=== PATIENT | female | born 1980 | race Caucasian/White ===

== ENCOUNTER 2018-03-21 03:39 | Emergency (ER) | payer BC ==
--- NOTE | 2018-03-21 04:35 | RADIOLOGY REPORT (SQ) ---
EXAM DESCRIPTION: XR SHOULDER 2 OR MORE VIEWS COMPLETED DATE/TME: 03/21/2018 00:00 CLINICAL HISTORY: 37 years, Female, possible dislocation COMPARISON: None. FINDINGS: 3 views of the left shoulder. Left reverse shoulder arthroplasty appears to be in appropriate radiographic position. No definite fracture identified. No acute abnormalities of the left hemithorax. IMPRESSION: No acute fracture or dislocation. Left reverse shoulder arthroplasty. 2010 [employer]- All Rights Reserved
[2018-03-21] MEDS ORDERED: ONDANSETRON 4 MG TAB.RAPDIS PO ONE (04:59)
--- NOTE | 2018-03-21 05:18 | ER Document Report ---
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 Patient states that away did not occur around a little bit. Patient states that the pain does not radiate. She still eating and drinking without difficulties. Patient states that she does not want to move the arm due to pain. She has not noticed any other redness, swelling, abscess, or streaks. Denies any headache, fever, neck pain, head injury, URI, sore throat, chest pain , palpitations, syncope, cough, shortness of breath, wheeze, dyspnea, abdominal pain, nausea/vomiting/diarrhea, urinary retention, dysuria, hematuria, loss of control of bowel or bladder, numbness/tingling, muscle paralysis/weakness, or rash. - ROS Systems Reviewed and Negative: Yes All other systems reviewed and negative Past Medical History - Social History Smoking Status: Current Some Day Smoker Chew tobacco use (# tins/day): No Frequency of alcohol use: None Drug Abuse: None Family History: Reviewed & Not Pertinent Patient has suicidal ideation: No Patient has homicidal ideation: No Renal/ Medical History: Denies: Hx Peritoneal Dialysis Vertical Provider Document - CONSTITUTIONAL Agree With Documented VS: Yes Notes: PHYSICAL EXAMINATION: GENERAL: Well-appearing, well-nourished and in no acute distress. NECK: Normal range of motion, supple without lymphadenopathy. Non-tender. Spurling negative. No rigidity/meningismus. LUNGS: Breath sounds clear to auscultation bilaterally and equal. No wheezes rales or rhonchi. HEART: Regular rate and rhythm without murmurs, rubs, gallops. Musculoskeletal: Lt shoulder: LROM to passive. LROM to active due to pain. Strength 5+/5. + surgical scar noted. No swelling, erythema, or warmth. No skin break down. No ecchymosis. N/V intact distal. Extremities: No cyanosis, clubbing, or edema b/l. Peripheral pulses 2+. Capillary refill less than 3 seconds. NEUROLOGICAL: Normal speech, normal gait. Normal sensory, motor exams PSYCH: Normal mood, normal affect. SKIN: Warm, Dry, normal turgor, no rashes or lesions noted. - INFECTION CONTROL TRAVEL OUTSIDE OF THE [place] IN LAST 30 DAYS: No Course - Re-evaluation Re-evalutation: 03/21/18 05:15 Patient is an afebrile, well-hydrated, 37-year-old female who presents to the ED with acute on chronic left shoulder pain. Vitals are acceptable without any significant tachycardia, tachypnea, or hypoxia. PE is otherwise unremarkable for any neurovascular compromise, obvious tendon/ligament rupture, obvious fracture/dislocation, septic joint, osteomyelitis. X-ray was unremarkable for any acute pathology and I compared it to a previous x-ray that patient's spouse had on his phone as well. Patient was becoming nauseated because of the pain so she was given Zofran. No other labs or imaging warranted at this time based on H&P. Patient is leaving to go back home tomorrow. Advised patient that she needs to call her orthopedic doctor tomorrow to schedule an appointment for further evaluation and management. Sling was provided today. Exercises reviewed. I will send her home with morphine IR (small amount). Recheck with your PCM this week as well. Return to the ED with any worsening/concerning symptoms otherwise as reviewed in discharge. Patient is in agreement. - Vital Signs Vital signs: Temp Pulse Resp BP Pulse Ox 97.6 F 80 16 175/118 H 99 03/21/18 03:44 03/21/18 03:44 03/21/18 03:44 03/21/18 03:44 03/21/18 03:44 Discharge - Discharge Clinical Impression: Left shoulder pain Qualifiers: Chronicity: acute Qualified Code(s): M25.512 - Pain in left shoulder Condition: Stable Disposition: HOME, SELF-CARE Instructions: Exercise Program for the Shoulder ([facility]), Temporary Sling ([facility]) Additional Instructions: Rest, Ice, Compression, Elevation Use sling as directed Tylenol/ibuprofen as needed Light stretches daily Strength exercises as able Moist heat and massage may help F/u with your PCP in 3-5 days for a recheck Call your orthopedic physician tomorrow to schedule an appointment for further evaluation and management Return to the ED with any worsening symptoms and/or development of fever, headache, chest pain, palpitations, syncope, shortness of breath, trouble breathing, abdominal pain, n/v/d, muscle weakness/paralysis, numbness/tingling, swelling, redness, or other worsening symptoms that are concerning to you. Prescriptions: Morphine Sulfate [Morphine Ir 15 Mg Tablet] 15 mg PO TID #10 tablet Naproxen 500 mg PO BID PRN #30 tablet PRN Reason: Forms: Elevated Blood Pressure, Smoking Cessation Education Referrals: ORTHOPEDICS [Provider Group] - 03/22/18
[2018-03-21] MEDS ORDERED: HYDROCODONE/ACETAMINOPHEN 5-325 MG TABLET PO ONE (05:47)
[2018-03-21 05:54] VITALS: BP 149/109
== END 2018-03-21 05:53 | disposition home or self-care (01) ==
LOC: ER 03:39
DX: M25.512 Pain in left shoulder (principal); G89.29 Other chronic pain; R11.0 Nausea; Z87.39 Personal history of other diseases of the musculoskeletal system and connective tissue; Z98.890 Other specified postprocedural states
CPT/HCPCS: 99283; 73030; S0119